=== PATIENT | male | born 1965 | race Caucasian/White ===

== ENCOUNTER 2020-11-04 14:44 | Inpatient (IN) | payer OTHER ==
[2020-11-04 16:14] VITALS: BMI 30.8
[2020-11-04] MEDS ORDERED: chlordiazePOXIDE HCL 25 MG CAPSULE PO ONE (17:22)
[2020-11-04] MEDS ORDERED: chlordiazePOXIDE HCL 25 MG CAPSULE ONE (17:36)
[2020-11-04] MEDS ORDERED: NICOTINE POLACRILEX 2 MG GUM BUC PRN (17:43)
[2020-11-04] MEDS ORDERED: METHOCARBAMOL 500 MG TABLET PO PRN (17:43)
[2020-11-04] MEDS ORDERED: ACETAMINOPHEN 325 MG TABLET (FP) PO PRN ×2 (17:43)
[2020-11-04] MEDS ORDERED: MAGNESIUM HYDROX 2400MG/30ML ORAL SUSPENSION 30 ML CUP PO PRN (17:43)
[2020-11-04] MEDS ORDERED: MAG HYDROX/AL HYDROX/SIMETH 30 ML UNIT-DOSE CUP PO PRN (17:43)
[2020-11-04] MEDS ORDERED: BISMUTH SUBSALICYLATE 524 MG/30 ML UD PO PRN (17:43)
[2020-11-04] MEDS ORDERED: ONDANSETRON *ODT* 4 MG TABLET SL PRN (17:43)
[2020-11-04] MEDS ORDERED: MAGNESIUM CITRATE 300 ML BOTTLE PO PRN (17:43)
[2020-11-04] MEDS ORDERED: MENTHOL/PHENOL 1 EACH UD MM PRN (17:43)
[2020-11-04] MEDS: IBUPROFEN 400 MG TABLET (FP) PO PRN (19:13)
[2020-11-04] MEDS: chlordiazePOXIDE HCL 25 MG CAPSULE PO PRN (19:14)
[2020-11-04] MEDS: guaiFENesin 200 MG/10 ML 10 ML UNIT-DOSE CUPS PO SCH ×2 (19:17→23:35)
[2020-11-04] MEDS ORDERED: cloNIDine HCL 0.1 MG TABLET PO ONE (21:07)
[2020-11-04] MEDS: MELATONIN 5 MG TABLETS PO PRN (22:33)
[2020-11-04] MEDS: THIAMINE HCL 100 MG TABLET (FP) PO SCH (22:33)
[2020-11-04] MEDS: chlordiazePOXIDE HCL 25 MG CAPSULE PO SCH (22:33)
[2020-11-04] MEDS: CEPHALEXIN MONOHYDRATE 500 MG CAPSULE (UD) PO SCH (23:35)
[2020-11-05] MEDS: CEPHALEXIN MONOHYDRATE 500 MG CAPSULE (UD) PO SCH ×3 (06:39→18:50)
[2020-11-05] MEDS: chlordiazePOXIDE HCL 25 MG CAPSULE PO SCH ×4 (06:39→22:09)
[2020-11-05] MEDS: guaiFENesin 200 MG/10 ML 10 ML UNIT-DOSE CUPS PO SCH ×4 (06:39→23:03)
[2020-11-05] MEDS: NICOTINE 21 MG/24 HOURS TOPICAL PATCH TD SCH (10:21)
[2020-11-05] MEDS: PRENATAL VITAMINS W/ FOLIC ACID TABLET (FP) PO SCH (10:21)
[2020-11-05] MEDS ORDERED: PANTOPRAZOLE 40 MG TABLET PO ONE (12:10)
[2020-11-05 12:45] LABS: HEMATOCRIT 37.7 % (35.4-49); HEMOGLOBIN 12.3 GM/dL (11.7-16.9); MCH 25.1 pg (25.7-33.7); MCHC 32.7 g/dl (32.0-35.9); MEAN PLT VOLUME 8.3 fl (7.5-11.1); PLATELET COUNT 229 K/MM3 (134-434); RBC 4.89 M/mm3 (4.00-5.60); RDW 17.2 % (11.9-15.9); WHITE BLOOD COUNT 6.1 K/mm3 (4.0-10.0)
[2020-11-05 12:46] LABS: ALBUMIN 3.5 g/dl (3.4-5.0); BLOOD UREA NITROGEN 15.7 mg/dL (7-18)
[2020-11-05 12:51] LABS: BILIRUBIN,TOTAL 1.1 mg/dL (0.2-1); TOT PROT 6.8 g/dl (6.4-8.2)
[2020-11-05 12:53] LABS: POTASSIUM 3.4 mmol/L (3.5-5.1)
[2020-11-05] MEDS: LIDOCAINE 5% TOPICAL PATCH TP SCH (13:27)
[2020-11-05] MEDS: chlordiazePOXIDE HCL 25 MG CAPSULE PO PRN (13:28)
[2020-11-05] MEDS: LIDOCAINE PATCH REMOVAL MC SCH (22:07)
[2020-11-05] MEDS: MELATONIN 5 MG TABLETS PO PRN (22:07)
[2020-11-05] MEDS: THIAMINE HCL 100 MG TABLET (FP) PO SCH (22:08)
[2020-11-05] MEDS: IBUPROFEN 400 MG TABLET (FP) PO PRN (22:08)
[2020-11-05] MEDS: POTASSIUM CHLORIDE TABS 20 MEQ TABLET.ER (FP) PO SCH (22:09)
[2020-11-06] MEDS: CEPHALEXIN MONOHYDRATE 500 MG CAPSULE (UD) PO SCH ×4 (00:11→17:41)
[2020-11-06] MEDS: guaiFENesin 200 MG/10 ML 10 ML UNIT-DOSE CUPS PO SCH ×3 (06:20→17:41)
[2020-11-06] MEDS: chlordiazePOXIDE HCL 25 MG CAPSULE PO SCH ×4 (06:20→22:36)
[2020-11-06] MEDS: IBUPROFEN 400 MG TABLET (FP) PO PRN (08:36)
[2020-11-06] MEDS ORDERED: PANTOPRAZOLE 40 MG TABLET PO SCH (10:00)
[2020-11-06] MEDS ORDERED: amLODIPine BESYLATE 5 MG TABLET (FP) PO SCH (10:00)
[2020-11-06] MEDS: NICOTINE 21 MG/24 HOURS TOPICAL PATCH TD SCH (10:01)
[2020-11-06] MEDS: POTASSIUM CHLORIDE TABS 20 MEQ TABLET.ER (FP) PO SCH (10:01)
[2020-11-06] MEDS: PRENATAL VITAMINS W/ FOLIC ACID TABLET (FP) PO SCH (10:02)
[2020-11-06] MEDS: LIDOCAINE 5% TOPICAL PATCH TP SCH (10:02)
[2020-11-06] MEDS: MELATONIN 5 MG TABLETS PO PRN (22:35)
[2020-11-06] MEDS: THIAMINE HCL 100 MG TABLET (FP) PO SCH (22:36)
[2020-11-06] MEDS: LIDOCAINE PATCH REMOVAL MC SCH (23:36)
[2020-11-07] MEDS ORDERED: chlordiazePOXIDE HCL 10 MG CAPSULE PO PRN
[2020-11-07] MEDS: guaiFENesin 200 MG/10 ML 10 ML UNIT-DOSE CUPS PO SCH ×2 (01:37→05:44)
[2020-11-07] MEDS: CEPHALEXIN MONOHYDRATE 500 MG CAPSULE (UD) PO SCH ×2 (01:37→05:45)
[2020-11-07] MEDS ORDERED: chlordiazePOXIDE HCL 10 MG CAPSULE PO SCH (05:00)
[2020-11-07 06:42] VITALS: PULSE 79
[2020-11-07 08:48] VITALS: BP 124/86; TEMP 97.2
[2020-11-07] MEDS: LIDOCAINE 5% TOPICAL PATCH TP SCH (09:02)
[2020-11-07 11:06] LABS: ALBUMIN 3.2 g/dl (3.4-5.0); CALCIUM 8.9 mg/dL (8.5-10.1)
[2020-11-07 11:07] LABS: BLOOD UREA NITROGEN 11.5 mg/dL (7-18)
[2020-11-07 11:08] LABS: CREATININE 0.7 mg/dL (0.55-1.3)
[2020-11-07 11:09] LABS: BILIRUBIN,TOTAL 0.7 mg/dL (0.2-1); TOT PROT 6.2 g/dl (6.4-8.2)
[2020-11-08] MEDS ORDERED: chlordiazePOXIDE HCL 10 MG CAPSULE PO SCH (05:00)
[2020-11-09] MEDS ORDERED: chlordiazePOXIDE HCL 10 MG CAPSULE PO ONE (05:00)
== END 2020-11-07 09:18 | disposition left against medical advice (07) | DRG 770 ==
LOC: YASAS 14:44 → Y3N 17:50
PROVIDERS: ADMIT Allergy & Immunology; ATTEND Allergy & Immunology
PROC: HZ2ZZZZ Detoxification Services for Substance Abuse Treatment (ICD-10-PCS; principal; 2020-11-04)
DX: F10.230 Alcohol dependence with withdrawal, uncomplicated (principal); F13.230 Sedative, hypnotic or anxiolytic dependence with withdrawal, uncomplicated; F17.210 Nicotine dependence, cigarettes, uncomplicated; I10 Essential (primary) hypertension; R05 Cough; E66.9 Obesity, unspecified; Z68.30 Body mass index [BMI] 30.0-30.9, adult; T81.49XA Infection following a procedure, other surgical site, initial encounter; L03.312 Cellulitis of back [any part except buttock and flank]; Z98.890 Other specified postprocedural states
CPT/HCPCS: 36415; 80053; 82947; 85027; 86780; 93005; 93010; C9803; J0735; Q0162; U0003

== ENCOUNTER 2020-12-12 12:45 | Emergency (ER) | payer OTHER ==
[2020-12-12 13:48] VITALS: BP 136/82; PULSE 100; TEMP 97.8; BMI 30.7
== END 2020-12-12 13:15 | disposition left against medical advice (07) ==
LOC: JER 12:45
DX: F10.129 Alcohol abuse with intoxication, unspecified (principal)
CPT/HCPCS: 99281-25